=== PATIENT | male | born 1950 | race Caucasian/White ===

== ENCOUNTER 2020-04-12 07:09 | Outpatient (CLI) | payer MEDICARE, OTHER ==
[2020-04-13 12:24] LABS: SARS-CoV-2 MS2 Positive; SARS-CoV-2 N Gene Negative; SARS-CoV-2 S Gene Negative; SARS-CoV-2 orf1ab Negative
== END 2020-04-12 07:10 | disposition home or self-care (01) ==
LOC: LABBT 07:09
PROVIDERS: ATTEND Neurological Surgery
DX: Z01.812 Encounter for preprocedural laboratory examination (principal); Z11.59 Encounter for screening for other viral diseases; G56.01 Carpal tunnel syndrome, right upper limb
CPT/HCPCS: 87635; U0003

== ENCOUNTER 2020-04-16 10:08 | Day surgery (SDC) | payer MEDICARE ==
--- NOTE | 2020-04-15 20:51 | HP ---
HISTORY: Mr. Carter is a 70-year-old man, retired and disabled , presenting for protracted course of bilateral carpal tunnel syndrome, electrophysiological evidence with NCV study. He uses his hands extensively at work. He is at a point now where he would like to treat his symptoms if possible by surgery. He has been dropping items for at least a year now symptomatically because both hands are equally affected with both pain and numbness. Denies any atrophy. He is right-hand dominant and hopes to treat this hand at first if possible. PAST MEDICAL HISTORY: Significant for migraine headaches, seasonal allergies, anxiety, depression, mood disorder, hypertension, sleep disorder, COPD. CURRENT MEDICATIONS: Iron, saw palmetto, Symbicort, Spiriva, trazodone, prazosin, quetiapine, fluoxetine, mirtazapine, buspirone, topiramate, and Xyzal. PAST SURGICAL HISTORY: Right ankle reconstruction, left great toe joint replacement, dorsal column stimulator placement, unspecified back surgery and cervical spinal fusion. ALLERGIES: TO PINEAPPLE, PENICILLIN, TETRACYCLINE, CODEINE, LAMOTRIGINE, BACTRIM, AND IMITREX. PHYSICAL EXAMINATION: Deferred secondary to COVID-19 health visit. PLAN: Dr. Garsia met with the patient, reviewed imaging, advocated for right carpal tunnel release. He explained the patient risks, benefits, and alternatives to the procedure. The patient expressed understanding and elected to move forward with the surgery as discussed. I do believe patient is mentally competent and capable of making medical decisions for himself, and we will move forward with surgery as planned. Job ID: [id number]
[2020-04-16] MEDS ORDERED: Lidocaine 1% w/Epinephrine 1:100K 20 ML VIAL ONE (10:11)
[2020-04-16] MEDS ORDERED: Lidocaine 1% PF 5 ML VIAL ONE (10:22)
[2020-04-16] MEDS ORDERED: PROPOFOL 200 MG/20 ML VIAL ONE (10:22)
[2020-04-16] MEDS ORDERED: Levofloxacin 500 mg/D5W 100 ml Premix Bag ONE (10:34)
[2020-04-16] MEDS ORDERED: Midazolam HCl 2 mg/2 ml Vial ONE ×2 (10:43→10:54)
[2020-04-16] MEDS ORDERED: Fentanyl 100 MCG/2 ML VIAL ONE ×3 (10:43→12:30)
--- NOTE | 2020-04-16 13:56 | OP ---
DATE OF PROCEDURE: 04/16/2020 EVENT ATTENDANT: Paco Rivera PA-C INDICATION: Pain. DIAGNOSIS: Right carpal tunnel syndrome. PROCEDURE PERFORMED: Right carpal tunnel release. ANESTHESIA: TIVA and local. DESCRIPTION OF PROCEDURE: The patient was brought into the operating room and placed under anesthesia. He was placed on table in a supine position with his arm extended perpendicular to his body. His hand and arm were prepped up to the level of the axilla. After prepping and draping and after an appropriate preoperative pause, a linear incision was planned in line with the long axis of the 4th digit across the crease in the wrist. This area was infiltrated with local anesthetic as well. Incision was then created. A self-retaining retractor was placed. The carpal tunnel ligament was identified and incised. The incision was extended in both proximal and distal directions until the elements of the carpal tunnel were well decompressed. The wound was irrigated. Hemostasis was maintained throughout. The wound was then closed in anatomic layers and a pressure dressing was applied. There were no known procedural complications. Job ID: [id number]
== END 2020-04-16 13:33 | disposition home or self-care (01) ==
LOC: SDC 10:08
PROVIDERS: ATTEND Neurological Surgery
PROC: 01N50ZZ Release Median Nerve, Open Approach (ICD-10-PCS; principal; 2020-04-16)
DX: G56.03 Carpal tunnel syndrome, bilateral upper limbs (principal); G43.909 Migraine, unspecified, not intractable, without status migrainosus; J30.2 Other seasonal allergic rhinitis; F41.9 Anxiety disorder, unspecified; F32.9 Major depressive disorder, single episode, unspecified; F39 Unspecified mood [affective] disorder; I10 Essential (primary) hypertension; J44.9 Chronic obstructive pulmonary disease, unspecified; G47.9 Sleep disorder, unspecified; Z79.899 Other long term (current) drug therapy; Z88.0 Allergy status to penicillin; Z88.1 Allergy status to other antibiotic agents; Z88.2 Allergy status to sulfonamides; Z88.5 Allergy status to narcotic agent; Z88.6 Allergy status to analgesic agent; Z98.1 Arthrodesis status
CPT/HCPCS: J1956; J2250; J2704; J3010

== ENCOUNTER 2020-05-14 07:23 | Outpatient (CLI) | payer MEDICARE, OTHER ==
[2020-05-15 14:01] LABS: SARS-CoV-2 MS2 Positive; SARS-CoV-2 N Gene Negative; SARS-CoV-2 S Gene Negative; SARS-CoV-2 by NAA Not Detected (NotDetected); SARS-CoV-2 orf1ab Negative
== END 2020-05-14 07:24 | disposition home or self-care (01) ==
LOC: LABBT 07:23
PROVIDERS: ATTEND Neurological Surgery
DX: G56.02 Carpal tunnel syndrome, left upper limb (principal); Z20.828 Contact with and (suspected) exposure to other viral communicable diseases
CPT/HCPCS: 87635; U0003

== ENCOUNTER 2020-06-18 06:59 | Outpatient (CLI) | payer MEDICARE, OTHER ==
[2020-06-19 14:53] LABS: SARS-CoV-2 MS2 Positive; SARS-CoV-2 N Gene Negative; SARS-CoV-2 S Gene Negative; SARS-CoV-2 by NAA Not Detected (NotDetected); SARS-CoV-2 orf1ab Negative
== END 2020-06-18 07:00 | disposition home or self-care (01) ==
LOC: LABBT 06:59
PROVIDERS: ATTEND Neurological Surgery
DX: G56.02 Carpal tunnel syndrome, left upper limb (principal); Z20.828 Contact with and (suspected) exposure to other viral communicable diseases
CPT/HCPCS: 87635; U0003

== ENCOUNTER 2020-06-23 08:18 | Day surgery (SDC) | payer MEDICARE ==
[2020-05-14 11:12] VITALS: BMI 27.3
--- NOTE | 2020-06-22 22:05 | HP ---
HISTORY OF PRESENT ILLNESS: Mr. Carter is a 70-year-old man who is known to us for recent right carpal tunnel release. He returns now to discuss release of the left hand. PAST MEDICAL HISTORY: Migraine headaches, seasonal allergies, anxiety, depression, mood disorder, hypertension, sleep disorder, COPD. CURRENT MEDICATIONS: 1. Iron. 2. Saw palmetto. 3. Symbicort. 4. Spiriva. 5. Trazodone. 6. Prazosin. 7. Quetiapine. 8. Fluoxetine. 9. Mirtazapine. 10. Buspirone. 11. Topiramate. 12. Xyzal. PAST SURGICAL HISTORY: Right ankle reconstruction, left great toe joint replacement, dorsal column stimulator replacement, unspecified back surgery, cervical spinal fusion, and right carpal tunnel release. ALLERGIES: PINEAPPLE, PENICILLIN, TETRACYCLINE, CODEINE, LAMOTRIGINE, BACTRIM, AND IMITREX. PHYSICAL EXAMINATION: Deferred for telehealth visit. PLAN: Dr. Garsia met with the patient, reviewed imaging, and advocated for left carpal tunnel release. He explained the patient risks, benefits, and alternatives to the procedure. The patient expressed understanding and elected to move forward with surgery as discussed. I do believe the patient is mentally competent and capable of making medical decisions for himself. We will move forward with surgery as planned. Job ID: [id number]
[2020-06-23] MEDS ORDERED: Lidocaine 1% w/Epinephrine 1:100K 20 ML VIAL ONE (08:40)
[2020-06-23] MEDS ORDERED: Midazolam HCl 2 mg/2 ml Vial ONE (09:10)
[2020-06-23] MEDS ORDERED: Fentanyl 100 MCG/2 ML VIAL ONE (09:10)
[2020-06-23] MEDS ORDERED: Levofloxacin 500 mg/D5W 100 ml Premix Bag ONE (09:14)
[2020-06-23] MEDS ORDERED: Clindamycin/D5W 900 mg/50 ml Premix Bag ONE (09:14)
--- NOTE | 2020-06-23 10:12 | OP ---
DATE OF PROCEDURE: 06/23/2020 GROUP DYNAMICS INSTRUCTOR: Paco Rivera PA-C. INDICATION: Pain. DIAGNOSIS: Carpal tunnel syndrome. PROCEDURES: Left carpal tunnel release. ANESTHESIA: TIVA and local. DESCRIPTION OF PROCEDURE: The patient was brought into the operating room and placed under anesthesia. His arm was extended perpendicular to his body and prepped up to the level of the axilla. A linear incision was planned across the crease of the wrist in line with the long axis of the fourth digit. The area was infiltrated superficially with lidocaine with epinephrine. Incision was then created, and the self-retaining retractors were placed. The carpal tunnel ligament was identified and incised. The incision was extended in proximal distal directions until the elements of the carpal tunnel were decompressed. The wound was then irrigated. Hemostasis was maintained throughout. The wound was then closed in a single-layer technique. The procedure came to an end without complication. Job ID: [id number]
[2020-06-23] MEDS ORDERED: PROPOFOL 200 MG/20 ML VIAL ONE (10:30)
[2020-06-23] MEDS ORDERED: traMADol HCl 50 MG TAB ONE (11:21)
== END 2020-06-23 11:40 | disposition home or self-care (01) ==
LOC: SDC 08:18
PROVIDERS: ATTEND Neurological Surgery
PROC: 01N50ZZ Release Median Nerve, Open Approach (ICD-10-PCS; principal; 2020-06-23)
DX: G56.02 Carpal tunnel syndrome, left upper limb (principal); G43.909 Migraine, unspecified, not intractable, without status migrainosus; F41.9 Anxiety disorder, unspecified; F32.9 Major depressive disorder, single episode, unspecified; I10 Essential (primary) hypertension; G47.9 Sleep disorder, unspecified; J43.9 Emphysema, unspecified; F10.11 Alcohol abuse, in remission; F43.10 Post-traumatic stress disorder, unspecified; Z87.891 Personal history of nicotine dependence; Z79.899 Other long term (current) drug therapy; Z88.0 Allergy status to penicillin; Z88.1 Allergy status to other antibiotic agents; Z88.2 Allergy status to sulfonamides; Z88.5 Allergy status to narcotic agent; Z88.6 Allergy status to analgesic agent; Z91.018 Allergy to other foods; Z98.1 Arthrodesis status; Z98.890 Other specified postprocedural states
CPT/HCPCS: J0690; J1956; J2250; J2704; J3010; J3490